=== PATIENT | male | born 1990 | race Caucasian/White ===

== ENCOUNTER 2019-05-01 13:49 | Inpatient (IN) | payer OTHER ==
[2019-05-01 15:34] VITALS: BMI 22.2
--- NOTE | 2019-05-01 16:40 | HP ---
CIWA Score Nausea/Vomitin-No Nausea/No Vomiting Muscle Tremors: None Anxiety: 0-No Anxiety, at Ease Agitation: 2 Paroxysmal Sweats: No Perspiration Orientation: 0-Oriented Tacttile Disturbances: 0-None Auditory Disturbances: 0-None Visual Disturbances: 0-None Headache: 0-None Present CIWA-Ar Total Score: 2 - Admission Criteria OASAS Guidelines: Admission for Medically Managed Detox: Requires at least one of the followin. CIWA greater than 12 2. Seizures within the past 24 hours 3. Delirium tremens within the past 24 hours 4. Hallucinations within the past 24 hours 5. Acute intervention needed for co occurring medical disorder 6. Acute intervention needed for co occurring psychiatric disorder 7. Severe withdrawal that cannot be handled at a lower level of care (continued vomiting, continued diarrhea, abnormal vital signs) requiring intravenous medication and/or fluids 8. Admission ROS [facility] Allergies/Adverse Reactions: Allergies Allergy/AdvReac Type Severity Reaction Status Date / Time No Known Allergies Allergy Verified 05/01/19 15:21 History of Present Illness: 29 y.o. male requesting detox from benzo use , claims using 12 mg xanax x 3 years , daily ,latest use yesterday . Denies seizures . in [facility] 60 mg " a few months " states he is being tapered off methadone . previously in [facility] , left after 4 mo , latest heroin use yesterday 1 bag via [facility] , heroin use since 8 years ago , denies OD . Methadone unverified upon questioning , admits to having been to another facility today , states does not recall name of facility and does not have d/c paperwork " i had restriction , some stupid $!1 " denies other illicits or etoh tobacco : denies PMHX : denies PSHx : denies Psych : denies This report was requested by: Milena Rosa | Reference #: [id number] Others' Prescriptions Patient Name: Manny Ponce Date: 1990 Address: [address] [place] [address] Sex: Male Rx Written Rx Dispensed Drug Quantity Days Supply Prescriber Name 11/17/2018 11/17/2018 buprenorphine-naloxone 8-2 mg sl film 45 15 Xander Trevino) 10/20/2018 10/20/2018 buprenorphine-naloxone 8-2 mg sl film 90 30 Shalom Wick 09/22/2018 09/22/2018 buprenorphine-[facility]one 8[facility]2 [facility] 08/24/2018 08/24/2018 buprenorphine-naloxone 8-2 mg sl film 90 30 Shamika, [facility] 08/10/2018 08/10/2018 buprenorphine-naloxone 8-2 mg sl film 45 [facility] 07/12/2018 07/12/2018 buprenorphine-naloxone 8-2 mg sl film 90 30 Shamika, [facility] 06/03/2018 06/03/2018 suboxone 8 mg-2 mg sl film 90 30 Abimael Pardo 05/06/2018 05/06/2018 suboxone 8 mg-2 mg sl film 90 30 Xander Trevino () Patient Name: Manny Ponce Date: 1990 Address: [address] [place] [address] Sex: Male Rx Written Rx Dispensed Drug Quantity Days Supply Prescriber Name 07/12/2018 07/12/2018 suboxone 8 mg-2 mg sl film 21 7 Cristino Worrell MD Exam Limitations: Clinical Condition - Review of Systems Constitutional: No Symptoms Reported EENT: reports: No Symptoms Reported Respiratory: reports: No Symptoms reported Cardiac: reports: No Symptoms Reported GI: reports: No Symptoms Reported : reports: No Symptoms Reported Musculoskeletal: reports: No Symptoms Reported Integumentary: reports: No Symptoms Reported Neuro: reports: No Symptoms reported Endocrine: reports: No Symptoms Reported Hematology: reports: No Symptoms Reported Psychiatric: reports: Orientated x3, Depressed Patient History - Smoking Cessation Smoking history: Never smoked - Substances abused Alprazolam (Xanax) Other (specify): 2mg Amount used: 8-12 sticks Age of first use: 17 Date of last use: 04/30/19 Heroin Substance route: Inhalation Frequency: Daily Amount used: 5-10bags Age of first use: 22 Date of last use: 04/30/19 Admission Physical Exam S - Vital Signs Vital Signs: Vital Signs - 24 hr 05/01/19 15:17 Temperature 98.6 F Pulse Rate 68 Respiratory 18 Rate Blood Pressure 108/64 - Physical General Appearance: Yes: Mild Distress, Irritable HEENTM: Yes: EOMI Respiratory: Yes: Lungs Clear, Normal Breath Sounds, No Respiratory Distress Neck: Yes: No masses,lesions,Nodules, Trachea in good position Cardiology: Yes: Regular Rhythm, Regular Rate, S1, S2 Abdominal: Yes: Non Tender, Soft Musculoskeletal: Yes: Gait Steady Extremities: Yes: Normal Range of Motion, Non-Tender Neurological: Yes: Alert, Depressed Affect Integumentary: Yes: Warm - Diagnostic (1) Opioid dependence on agonist therapy Current Visit: Yes Status: Chronic (2) Sedative abuse Current Visit: Yes Status: Acute Breathalyzer - Breathalyzer Breathalyzer: 0 Urine Drug Screen - Test Device Lot number: [id number] Expiration date: 02/21/21 - Control Is test valid?: Yes - Results Drug screen NEGATIVE: No Urine drug screen results: FEN-Fentanyl, MOP-Opiates, MTD-Methadone, BZO- Benzodiazepines Inpatient Rehab Admission - Rehab Decision to Admit Inpatient rehab admission?: No
[2019-05-01] MEDS ORDERED: MAG HYDROX/AL HYDROX/SIMETH 30 ML UNIT-DOSE CUP PO PRN (16:55)
[2019-05-01] MEDS ORDERED: IBUPROFEN 400 MG TABLET (FP) PO PRN (16:55)
[2019-05-01] MEDS ORDERED: MENTHOL/PHENOL 1 EACH UD MM PRN (16:55)
[2019-05-01] MEDS ORDERED: MELATONIN 5 MG TABLETS PO PRN (16:55)
[2019-05-01] MEDS ORDERED: BISMUTH SUBSALICYLATE 524 MG/30 ML UD PO PRN (16:55)
[2019-05-01] MEDS ORDERED: MAGNESIUM CITRATE 300 ML BOTTLE PO PRN (16:55)
[2019-05-01] MEDS ORDERED: hydrOXYzine PAMOATE 25 MG CAPSULE (FP) PO PRN (16:55)
[2019-05-01] MEDS ORDERED: ACETAMINOPHEN 325 MG TABLET (FP) PO PRN ×2 (16:55)
[2019-05-01] MEDS ORDERED: MAGNESIUM HYDROX 2400MG/30ML ORAL SUSPENSION 30 ML CUP PO PRN (16:55)
[2019-05-01] MEDS: diazePAM 5 MG TABLET PO PRN (18:09)
[2019-05-01] MEDS: diazePAM 5 MG TABLET PO SCH ×2 (18:22→22:43)
[2019-05-01] MEDS: THIAMINE HCL 100 MG TABLET (FP) PO SCH (22:43)
[2019-05-02] MEDS: diazePAM 5 MG TABLET PO SCH ×3 (06:56→22:09)
[2019-05-02] MEDS ORDERED: METHADONE HCL 10 MG TABLET PO ONE (09:46)
--- NOTE | 2019-05-02 09:54 | PN ---
S CIWA - CIWA Score Nausea/Vomitin-No Nausea/No Vomiting Muscle Tremors: 3 Anxiety: 4-Mod. Anxious/Guarded Agitation: 3 Paroxysmal Sweats: 1-Minimal Palms Moist Orientation: 0-Oriented Tacttile Disturbances: 0-None Auditory Disturbances: 0-None Visual Disturbances: 1-Very Mild Sensitivity Headache: 0-None Present CIWA-Ar Total Score: 12 [facility] Progress Note (SOAP) Subjective: 29 years old male admittedf on for benzo withdrawal sx management treating with valium detox regiment reports in methadone marcos off and received methadone 50mg due to opiate substances in [facility] methadone maintaining at 50mg during the detox Objective: 05/02/19 09:53 Vital Signs Temperature 97.7 F 05/02/19 09:02 Pulse Rate 67 05/02/19 09:02 Respiratory Rate 18 05/02/19 09:02 Blood Pressure 99/64 05/02/19 09:02 O2 Sat by Pulse Oximetry (%) 05/02/19 09:54 lab pending Assessment: 05/02/19 09:54 benzo withdrawal Plan: valium regiment
[2019-05-02] MEDS ORDERED: METHADONE 40 MG, METHADONE 10 MG PO ONE (10:00)
[2019-05-02] MEDS ORDERED: METHADONE HCL 10 MG TABLET ONE (10:08)
[2019-05-02] MEDS ORDERED: METHADONE HCL 40 MG DISPERSABLE TABLET ONE (10:09)
[2019-05-02 10:10] LABS: HEMATOCRIT 38.2 % (35.4-49); HEMOGLOBIN 12.8 GM/dL (11.7-16.9); MCH 28.1 pg (25.7-33.7); MCHC 33.4 g/dl (32.0-35.9); MEAN CELL VOLUME 84.3 fl (80-96); PLATELET COUNT 352 K/MM3 (134-434); RBC 4.53 M/mm3 (4.00-5.60); RDW 13.5 % (11.9-15.9); WHITE BLOOD COUNT 6.3 K/mm3 (4.0-10.0)
[2019-05-02] MEDS: PRENATAL VITAMINS W/ FOLIC ACID TABLET (FP) PO SCH (10:17)
[2019-05-02 10:23] LABS: ALBUMIN 3.9 g/dl (3.4-5.0); BILIRUBIN,TOTAL 0.6 mg/dL (0.2-1); BLOOD UREA NITROGEN 9.2 mg/dL (7-18); CALCIUM 9.1 mg/dL (8.5-10.1); CREATININE 0.8 mg/dL (0.55-1.3); POTASSIUM 4.2 mmol/L (3.5-5.1); TOT PROT 6.7 g/dl (6.4-8.2)
[2019-05-02] MEDS: diazePAM 5 MG TABLET PO PRN (17:58)
[2019-05-02] MEDS: THIAMINE HCL 100 MG TABLET (FP) PO SCH (22:09)
[2019-05-03] MEDS ORDERED: METHADONE HCL 40 MG DISPERSABLE TABLET ONE (04:03)
[2019-05-03] MEDS ORDERED: METHADONE HCL 10 MG TABLET ONE (04:03)
[2019-05-03] MEDS ORDERED: METHADONE HCL 10 MG TABLET PO SCH (06:00)
[2019-05-03] MEDS ORDERED: METHADONE 40 MG, METHADONE 10 MG PO SCH (06:00)
[2019-05-03] MEDS ORDERED: diazePAM 5 MG TABLET PO SCH (06:00)
[2019-05-03 09:12] VITALS: BP 98/66; PULSE 80; TEMP 97.3
[2019-05-03] MEDS: PRENATAL VITAMINS W/ FOLIC ACID TABLET (FP) PO SCH (10:01)
[2019-05-03] MEDS: diazePAM 5 MG TABLET PO PRN (10:01)
--- NOTE | 2019-05-03 10:48 | DS ---
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 patient walked in to counselor's room took the phone and begin conduct business patient was informed unit rule that group time and medication time are not allow to use the phone patient was irritable aggressive and intimidating gesture and made fingers cracking noise team met with the patient that short frequent groups and medication time are for the safety of the patients to avoid phone preoccupation patient seems receptive time elapse patient insists to have his cell phone or he will leave the detox 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 patient prefers to leave the detox Pertinent Past History: patient insists to leave the detox unit that phone is not available 20/10 which influence his operation case discussed with the nurse against medical advice is appropriated patient reports that he does not want to marcos off his methadone "do not know why" the methadone program performing marcos - Physical Exam Results Vital Signs: Vital Signs Temperature 97.3 F L 05/03/19 08:38 Pulse Rate 80 05/03/19 08:38 Respiratory Rate 18 05/03/19 08:38 Blood Pressure 98/66 05/03/19 08:38 O2 Sat by Pulse Oximetry (%) Pertinent Admission Physical Exam Findings: benzo withdrawal Laboratory Last Values WBC 6.3 K/mm3 (4.0-10.0) 05/02/19 07:30 RBC 4.53 M/mm3 (4.00-5.60) 05/02/19 07:30 Hgb 12.8 GM/dL (11.7-16.9) 05/02/19 07:30 Hct 38.2 % (35.4-49) 05/02/19 07:30 MCV 84.3 fl (80-96) 05/02/19 07:30 MCH 28.1 pg (25.7-33.7) 05/02/19 07:30 MCHC 33.4 g/dl (32.0-35.9) 05/02/19 07:30 RDW 13.5 % (11.9-15.9) 05/02/19 07:30 Plt Count 352 K/MM3 (134-434) 05/02/19 07:30 MPV 9.0 fl (7.5-11.1) 05/02/19 07:30 Sodium 141 mmol/L (136-145) 05/02/19 07:30 Potassium 4.2 mmol/L (3.5-5.1) 05/02/19 07:30 Chloride 108 mmol/L (98-107) H 05/02/19 07:30 Carbon Dioxide 26 mmol/L (21-32) 05/02/19 07:30 Anion Gap 6 MMOL/L (8-16) L 05/02/19 07:30 BUN 9.2 mg/dL (7-18) 05/02/19 07:30 Creatinine 0.8 mg/dL (0.55-1.3) 05/02/19 07:30 Est GFR (CKD-EPI)AfAm 139.91 05/02/19 07:30 Est GFR (CKD-EPI)NonAf 120.72 05/02/19 07:30 Random Glucose 83 mg/dL (74-106) 05/02/19 07:30 Calcium 9.1 mg/dL (8.5-10.1) 05/02/19 07:30 Total Bilirubin 0.6 mg/dL (0.2-1) 05/02/19 07:30 AST 23 U/L (15-37) 05/02/19 07:30 ALT 28 U/L (13-61) 05/02/19 07:30 Alkaline Phosphatase 43 U/L (45-117) L 05/02/19 07:30 Total Protein 6.7 g/dl (6.4-8.2) 05/02/19 07:30 Albumin 3.9 g/dl (3.4-5.0) 05/02/19 07:30 RPR Titer Nonreactive (NONREACTIVE) 05/02/19 07:30 lab noted - Treatment Hospital Course: Detox Protocol Followed Patient has Accepted a Rehab Referral to: [facility] chemical dependent rehab - Medication Discharge Medications: Ambulatory Orders Methadone [Dolophine -] 50 mg PO DAILY 05/01/19 - Diagnosis (1) Sedative, hypnotic or anxiolytic dependence, uncomplicated Status: Acute (2) Opioid dependence on agonist therapy Status: Chronic - AMA Did Patient Leave Against Medical Advice: Yes
[2019-05-04] MEDS ORDERED: diazePAM 5 MG TABLET PO ONE (06:00)
== END 2019-05-03 11:05 | disposition left against medical advice (07) | DRG 770 ==
LOC: YASAS 13:49 → Y3N 17:03
PROVIDERS: ADMIT Allergy & Immunology; ATTEND Allergy & Immunology
PROC: HZ2ZZZZ Detoxification Services for Substance Abuse Treatment (ICD-10-PCS; principal; 2019-05-01)
DX: F13.230 Sedative, hypnotic or anxiolytic dependence with withdrawal, uncomplicated (principal); F11.20 Opioid dependence, uncomplicated; Z59.0 Homelessness
CPT/HCPCS: 36415; 80053; 85027; 86593

== ENCOUNTER 2019-11-15 20:03 | Inpatient (IN) | payer OTHER ==
[2019-11-15 20:56] VITALS: BMI 21.9
--- NOTE | 2019-11-15 21:29 | HP ---
COWS - Scale Resting Pulse: 1= [place] 81-100 Sweatin=Flushed/Facial Moisture Restless Observation: 1= Difficult to Sit Still Pupil Size: 0= Normal to Room Light Bone or Joint Aches: 2= Severe Diffuse Aches Runny Nose/ Eye Tearin= Runny Nose/Eyes GI Upset > 30mins: 3= Vomiting/Diarrhea (vopmiting x 2, diarrhea x 2) Tremor Observation: 4= Gross Tremor/Twitching Yawning Observation: 1= 1-2x During Session Anxiety or Irritability: 4=Extreme Anxiety Goose Flesh Skin: 0=Smooth Skin COWS Score: 20 CIWA Score Nausea/Vomitin (vomiting x 2) Muscle Tremors: 4-Moderate,w/Arms Extend Anxiety: 4-Mod. Anxious/Guarded Agitation: 4-Moderately Restless Paroxysmal Sweats: 2 Orientation: 1-Uncertain about Date Tacttile Disturbances: 1-Very Mild Itch/Numbness Auditory Disturbances: 0-None Visual Disturbances: 0-None Headache: 0-None Present CIWA-Ar Total Score: 19 - Admission Criteria OASAS Guidelines: Admission for Medically Managed Detox: Requires at least one of the followin. CIWA greater than 12 2. Seizures within the past 24 hours 3. Delirium tremens within the past 24 hours 4. Hallucinations within the past 24 hours 5. Acute intervention needed for co occurring medical disorder 6. Acute intervention needed for co occurring psychiatric disorder 7. Severe withdrawal that cannot be handled at a lower level of care (continued vomiting, continued diarrhea, abnormal vital signs) requiring intravenous medication and/or fluids 8. Admitting History and Physical - Smoking History Smoking history: Never smoked Have you smoked in the past 12 months: No Admission [facility] Chief Complaint: Xanax and heroin withdrawal symptoms Allergies/Adverse Reactions: Allergies Allergy/AdvReac Type Severity Reaction Status Date / Time No Known Allergies Allergy Verified 05/01/19 15:21 History of Present Illness: 29 years old male with 8 years of heroin dependence and 13 years of benzodiazepine dependence is seeking admission to detox. Patient left against medical advice the first time he came here and was aggressive and disrespectful as per documentation. Patient promised that he will complete this detox and will sign a treatment contract. He reports that he takes Xanax 8mg tablet and 10 bags of heroin daily. He denies medical history, reports psych. history of anxiety and denies suicidal ideation at this time. He is unemployed, lives with his father and denies legal issues. He reports blackouts and overdose last Thursday. Patient reports that the bruises on his bilateral leg are scratch sales from [place] the park. Exam Limitations: No Limitations - Ebola screening Have you traveled outside of the country in the last 21 days: No Have you had contact with anyone from an Ebola affected area: No Have you been sick,other than usual withdrawal symptoms: No Do you have a fever: No - Review of Systems Constitutional: Chills, Malaise, Night Sweats, Changes in sleep EENT: reports: No Symptoms Reported Respiratory: reports: No Symptoms reported Cardiac: reports: No Symptoms Reported GI: reports: Diarrhea, Nausea, Poor Fluid Intake, Vomiting, Abdominal cramping : reports: No Symptoms Reported Musculoskeletal: reports: Back Pain, Muscle Pain Integumentary: reports: Dryness, Flushing Neuro: reports: Tremors Endocrine: reports: No Symptoms Reported Hematology: reports: No Symptoms Reported Psychiatric: reports: Mood/Affect Appropiate, Anxious Other Systems: Reviewed and Negative Patient History - Patient Medical History Hx Anemia: No Hx Asthma: No Hx Chronic Obstructive Pulmonary Disease (COPD): No Hx Cancer: No Hx Cardiac Disorders: No Hx Congestive Heart Failure: No Hx Hypertension: No Hx Hypercholesterolemia: No Hx Pacemaker: No HX Cerebrovascular Accident: No Hx Seizures: No Hx Dementia: No Hx Diabetes: No Hx Gastrointestinal Disorders: No Hx Genitourinary Disorders: No Hx Sexually Transmitted Disorders: No Hx Renal Disease (ESRD): No Hx Thyroid Disease: No Hx Human Immunodeficiency Virus (HIV): No (Negative 2020) Hx Hepatitis C: No Hx Depression: Yes Hx Suicide Attempt: No (Denies suicidal ideation at this time) Hx Bipolar Disorder: No Hx Schizophrenia: No - Patient Surgical History Past Surgical History: No Hx Neurologic Surgery: No Hx Cataract Extraction: No Hx Cardiac Surgery: No Hx Lung Surgery: No Hx Abdominal Surgery: No Hx Appendectomy: No Hx Cholecystectomy: No Hx Genitourinary Surgery: No Hx Orthopedic Surgery: No Anesthesia Reaction: No - PPD History Previous Implant?: Yes Date: 05/03/19 PPD to be Administered?: Yes - Reproductive History Patient is a Female of Child Bearing Age (11 -55 yrs old): No (Male) - Smoking Cessation Smoking history: Never smoked Have you smoked in the past 12 months: No Hx Chewing Tobacco Use: No Initiated information on smoking cessation: No - Substance & Tx. History Hx Substance Use: Yes Substance Use Type: Cocaine, Heroin, Marijuana, Opiates, Tranquilizers Hx Substance Use Treatment: Yes ([facility]) - Substances abused Heroin Substance route: Inhalation Frequency: Daily Amount used: 10 bags Age of first use: 21 Date of last use: 11/15/19 Alprazolam (Xanax) Substance route: Oral Frequency: Daily Amount used: 8mg Age of first use: 16 Date of last use: 11/14/19 Admission Physical Exam [facility] - Vital Signs Vital Signs: Vital Signs - 24 hr 11/15/19 20:54 Temperature 98.4 F Pulse Rate 82 Respiratory 18 Rate Blood Pressure 112/65 - Physical General Appearance: Yes: Moderate Distress, Tremorous, Irritable, Anxious HEENTM: Yes: Within Normal Limits Respiratory: Yes: Lungs Clear, Normal Breath Sounds, No Respiratory Distress Neck: Yes: Within Normal Limits Breast: Yes: Breast Exam Deferred Cardiology: Yes: Regular Rhythm, Regular Rate Abdominal: Yes: Normal Bowel Sounds Genitourinary: Yes: Within Normal Limits Back: Yes: Normal Inspection Musculoskeletal: Yes: Back pain, Muscle Pain Extremities: Yes: Tremors Neurological: Yes: Within Normal Limits Integumentary: Yes: Warm Lymphatic: Yes: Within Normal Limits - Diagnostic (1) Opioid dependence with withdrawal Current Visit: Yes Status: Acute (2) Depression Current Visit: Yes Status: Chronic Qualifiers: Depression Type: unspecified Qualified Code(s): F32.9 - Major depressive disorder, single episode, unspecified (3) Sedative, hypnotic or anxiolytic dependence, uncomplicated Current Visit: Yes Status: Acute Cleared for Admission [facility] - Detox or Rehab [facility] Level of Care: Medically Managed Detox Regimen/Protocol: Methadone/Valium Claeared for Rehab Admission: No Breathalyzer - Breathalyzer Breathalyzer: 0 Urine Drug Screen - Test Device Lot number: [id number] Expiration date: 07/05/21 - Control Is test valid?: Yes - Results Drug screen NEGATIVE: No Urine drug screen results: THC-Marijuana, BERNARD-Cocaine, FEN-Fentanyl, MOP- Opiates, BZO-Benzodiazepines Inpatient Rehab Admission - Rehab Decision to Admit Inpatient rehab admission?: No
[2019-11-15] MEDS ORDERED: ACETAMINOPHEN 325 MG TABLET (FP) PO PRN ×2 (21:45)
[2019-11-15] MEDS ORDERED: cloNIDine HCL 0.1 MG TABLET PO PRN (21:45)
[2019-11-15] MEDS ORDERED: METHADONE HCL 10 MG TABLET (FOR DETOX USE ONLY) PO ONE (21:45)
[2019-11-15] MEDS ORDERED: BISMUTH SUBSALICYLATE 524 MG/30 ML UD PO PRN (21:45)
[2019-11-15] MEDS ORDERED: ONDANSETRON *ODT* 4 MG TABLET SL ONE (21:45)
[2019-11-15] MEDS ORDERED: MAGNESIUM CITRATE 300 ML BOTTLE PO PRN (21:45)
[2019-11-15] MEDS ORDERED: MAGNESIUM HYDROX 2400MG/30ML ORAL SUSPENSION 30 ML CUP PO PRN (21:45)
[2019-11-15] MEDS ORDERED: MAG HYDROX/AL HYDROX/SIMETH 30 ML UNIT-DOSE CUP PO PRN (21:45)
[2019-11-15] MEDS ORDERED: METHOCARBAMOL 500 MG TABLET PO PRN (21:45)
[2019-11-15] MEDS ORDERED: MENTHOL/PHENOL 1 EACH UD MM PRN (21:45)
[2019-11-15] MEDS ORDERED: IBUPROFEN 400 MG TABLET (FP) PO PRN (21:45)
[2019-11-15] MEDS: diazePAM 5 MG TABLET PO SCH (23:41)
[2019-11-15] MEDS: MELATONIN 5 MG TABLETS PO SCH (23:42)
[2019-11-15] MEDS: THIAMINE HCL 100 MG TABLET (FP) PO SCH (23:42)
[2019-11-16] MEDS: diazePAM 5 MG TABLET PO SCH ×3 (06:48→22:47)
[2019-11-16] MEDS ORDERED: METHADONE HCL 5 MG TABLET (FOR DETOX USE ONLY) ONE (09:13)
[2019-11-16] MEDS ORDERED: METHADONE HCL 10 MG TABLET (FOR DETOX USE ONLY) ONE (09:13)
--- NOTE | 2019-11-16 09:22 | EKG ---
Test Reason : Blood Pressure : / mmHG Vent. Rate : 070 BPM Atrial Rate : 070 BPM P-R Int : 198 ms QRS Dur : 090 ms QT Int : 398 ms P-R-T Axes : 063 014 024 degrees QTc Int : 429 ms NORMAL SINUS RHYTHM NORMAL ECG NO PREVIOUS ECGS AVAILABLE Confirmed by Manav Denis MD ([id number]) on 11/16/2019 9:22:29 AM Referred By: ERICK BRYAN Confirmed By:Manav Denis MD
[2019-11-16] MEDS ORDERED: METHADONE (DETOX) 20 MG, METHADONE (DETOX) 5 MG PO ONE (10:00)
[2019-11-16] MEDS: PRENATAL VITAMINS W/ FOLIC ACID TABLET (FP) PO SCH (10:02)
[2019-11-16] MEDS: diazePAM 5 MG TABLET PO PRN (10:02)
[2019-11-16 12:19] LABS: HEMATOCRIT 34.8 % (35.4-49); HEMOGLOBIN 11.3 GM/dL (11.7-16.9); MCH 27.2 pg (25.7-33.7); MCHC 32.4 g/dl (32.0-35.9); MEAN CELL VOLUME 83.8 fl (80-96); MEAN PLT VOLUME 8.2 fl (7.5-11.1); PLATELET COUNT 374 K/MM3 (134-434); RBC 4.16 M/mm3 (4.00-5.60); RDW 13.4 % (11.9-15.9); WHITE BLOOD COUNT 6.5 K/mm3 (4.0-10.0)
[2019-11-16 12:31] LABS: ALBUMIN 3.2 g/dl (3.4-5.0); BLOOD UREA NITROGEN 10.6 mg/dL (7-18); CALCIUM 8.8 mg/dL (8.5-10.1); POTASSIUM 4.1 mmol/L (3.5-5.1)
[2019-11-16 12:36] LABS: BILIRUBIN,TOTAL 0.2 mg/dL (0.2-1); CREATININE 0.7 mg/dL (0.55-1.3); TOT PROT 6.2 g/dl (6.4-8.2)
--- NOTE | 2019-11-16 14:21 | PN ---
S CIWA - CIWA Score Nausea/Vomitin-Mild Nausea/No Vomiting Muscle Tremors: 4-Moderate,w/Arms Extend Anxiety: 3 Agitation: 1-Slight > Activity Paroxysmal Sweats: 1-Minimal Palms Moist Orientation: 0-Oriented Tacttile Disturbances: 0-None Auditory Disturbances: 0-None Visual Disturbances: 2-Mild Sensitivity Headache: 2-Mild CIWA-Ar Total Score: 14 S COWS - Scale Resting Pulse: 0= [place] 80 or Below Sweatin= Chills/Flushing Restless Observation: 0= Sits Still Pupil Size: 1= Pupils >than Normal Bone or Joint Aches: 2= Severe Diffuse Aches Runny Nose/ Eye Tearin= None GI Upset > 30mins: 2= Nausea/Diarrhea Tremor Observation of Outstretched Hands: 2= Slight Tremor Visible Yawning Observation: 1= 1-2x During Session Anxiety or Irritability: 2=Irritable/Anxious Goose Flesh Skin: 3=Piloerection COWS Score: 14 S Progress Note (SOAP) Subjective: 29 years old male was admitted on 11/15/19 for benzo and opiate withdrawal sx management treating with valium and methadone detox regiments ate breakfast and lunch in room feels tired prefers to stay in bed limited conversation with staff Objective: 11/16/19 14:21 Vital Signs - 24 hr 11/15/19 11/15/19 11/15/19 20:54 22:46 22:55 Temperature 98.4 F 98.4 F Pulse Rate 82 82 Respiratory 18 18 Rate Blood Pressure 112/65 112/65 O2 Sat by Pulse 100 Oximetry (%) 11/15/19 11/16/19 11/16/19 23:29 09:03 12:55 Temperature 97.1 F L 99.0 F 99.3 F Pulse Rate 65 77 73 Respiratory 18 18 18 Rate Blood Pressure 107/75 104/69 102/64 O2 Sat by Pulse 100 99 Oximetry (%) Laboratory Tests 11/16/19 11/16/19 08:30 08:30 WBC 6.5 RBC 4.16 Hgb 11.3 L Hct 34.8 L MCV 83.8 MCH 27.2 MCHC 32.4 RDW 13.4 Plt Count 374 MPV 8.2 Sodium 140 Potassium 4.1 Chloride 107 Carbon Dioxide 29 Anion Gap 5 L BUN 10.6 Creatinine 0.7 Est GFR (CKD-EPI)AfAm 147.81 Est GFR (CKD-EPI)NonAf 127.53 Random Glucose 105 Calcium 8.8 Total Bilirubin 0.2 AST 16 ALT 16 Alkaline Phosphatase 50 Total Protein 6.2 L Albumin 3.2 L 11/16/19 14:21 covid pending Assessment: 11/16/19 14:26 benzo and opiate withdrawal Plan: valium and methadone regiments
[2019-11-16] MEDS: THIAMINE HCL 100 MG TABLET (FP) PO SCH (22:47)
[2019-11-16] MEDS: MELATONIN 5 MG TABLETS PO SCH (22:48)
[2019-11-17] MEDS: diazePAM 5 MG TABLET PO SCH ×2 (06:36→17:30)
[2019-11-17] MEDS: diazePAM 5 MG TABLET PO PRN ×2 (09:56→22:31)
[2019-11-17] MEDS: PRENATAL VITAMINS W/ FOLIC ACID TABLET (FP) PO SCH (09:56)
[2019-11-17] MEDS ORDERED: METHADONE HCL 10 MG TABLET (FOR DETOX USE ONLY) PO ONE (10:00)
--- NOTE | 2019-11-17 13:36 | PN ---
[facility] CIWA - CIWA Score Nausea/Vomitin-Mild Nausea/No Vomiting Muscle Tremors: 2 Anxiety: 2 Agitation: 3 Paroxysmal Sweats: No Perspiration Orientation: 0-Oriented Tacttile Disturbances: 0-None Auditory Disturbances: 0-None Visual Disturbances: 2-Mild Sensitivity Headache: 1-Very Mild CIWA-Ar Total Score: 11 S COWS - Scale Resting Pulse: 0= [place] 80 or Below Sweatin= Chills/Flushing Restless Observation: 0= Sits Still Pupil Size: 1= Pupils >than Normal Bone or Joint Aches: 1= Mild Discomfort Runny Nose/ Eye Tearin= Nasal Congestion GI Upset > 30mins: 2= Nausea/Diarrhea Tremor Observation of Outstretched Hands: 2= Slight Tremor Visible Yawning Observation: 1= 1-2x During Session Anxiety or Irritability: 2=Irritable/Anxious Goose Flesh Skin: 0=Smooth Skin COWS Score: 11 [facility] Progress Note (SOAP) Subjective: 29 years old male was admitted on 11/15/19 for benzo and opiate withdrawal sx management treating with valium and methadone detox regiments ate breakfast and lunch in room resting in bed encourage mr bowie to discuss aftercare with staff limited conversation with staff Objective: 11/17/19 13:42 Vital Signs - 24 hr 11/16/19 11/16/19 11/17/19 16:34 20:54 06:41 Temperature 97.5 F L 97.3 F L 97.6 F Pulse Rate 65 75 60 Respiratory 17 18 18 Rate Blood Pressure 90/55 L 103/75 99/64 O2 Sat by Pulse 99 Oximetry (%) 11/17/19 08:58 Temperature 98.6 F Pulse Rate 69 Respiratory 18 Rate Blood Pressure 96/64 O2 Sat by Pulse Oximetry (%) Laboratory Tests 11/15/19 11/16/19 11/16/19 22:00 08:30 08:30 WBC 6.5 RBC 4.16 Hgb 11.3 L Hct 34.8 L MCV 83.8 MCH 27.2 MCHC 32.4 RDW 13.4 Plt Count 374 MPV 8.2 Sodium Potassium Chloride Carbon Dioxide Anion Gap BUN Creatinine Est GFR (CKD-EPI)AfAm Est GFR (CKD-EPI)NonAf Random Glucose Calcium Total Bilirubin AST ALT Alkaline Phosphatase Total Protein Albumin Syphilis Serology Non-reactive COVID-19 ([place]) Not detected 11/16/19 08:30 WBC RBC Hgb Hct MCV MCH MCHC RDW Plt Count MPV Sodium 140 Potassium 4.1 Chloride 107 Carbon Dioxide 29 Anion Gap 5 L BUN 10.6 Creatinine 0.7 Est GFR (CKD-EPI)AfAm 147.81 Est GFR (CKD-EPI)NonAf 127.53 Random Glucose 105 Calcium 8.8 Total Bilirubin 0.2 AST 16 ALT 16 Alkaline Phosphatase 50 Total Protein 6.2 L Albumin 3.2 L Syphilis Serology COVID-19 ([place]) lab noted Assessment: 11/17/19 13:43 benzo and opiate withdrawal Plan: valium and methadone regiments
[2019-11-17] MEDS: MELATONIN 5 MG TABLETS PO SCH (22:29)
[2019-11-17] MEDS: THIAMINE HCL 100 MG TABLET (FP) PO SCH (22:29)
[2019-11-18] MEDS ORDERED: diazePAM 5 MG TABLET PO ONE (06:00)
[2019-11-18] MEDS ORDERED: METHADONE (DETOX) 10 MG, METHADONE (DETOX) 5 MG PO ONE (10:00)
[2019-11-18] MEDS ORDERED: METHADONE HCL 10 MG TABLET (FOR DETOX USE ONLY) ONE (10:05)
[2019-11-18] MEDS ORDERED: METHADONE HCL 5 MG TABLET (FOR DETOX USE ONLY) ONE (10:05)
[2019-11-18] MEDS: diazePAM 5 MG TABLET PO PRN ×2 (10:07→17:55)
[2019-11-18] MEDS: PRENATAL VITAMINS W/ FOLIC ACID TABLET (FP) PO SCH (10:08)
--- NOTE | 2019-11-18 11:20 | PN ---
[facility] CIWA - CIWA Score Nausea/Vomitin-No Nausea/No Vomiting Muscle Tremors: None Anxiety: 3 Agitation: 2 Paroxysmal Sweats: 3 Orientation: 0-Oriented Tacttile Disturbances: 0-None Auditory Disturbances: 0-None Visual Disturbances: 0-None Headache: 0-None Present CIWA-Ar Total Score: 8 S Progress Note (SOAP) Subjective: c/o anxiety, irritability, and sweats. Objective: 11/18/19 11:20 Vital Signs 11/18/19 11/18/19 06:55 08:35 Temperature 97.3 F L 98.6 F Pulse Rate 57 L 59 L Respiratory 16 16 Rate Blood Pressure 100/58 L 87/55 L O2 Sat by Pulse 99 Oximetry (%) Laboratory Last Values WBC 6.5 K/mm3 (4.0-10.0) 11/16/19 08:30 RBC 4.16 M/mm3 (4.00-5.60) 11/16/19 08:30 Hgb 11.3 GM/dL (11.7-16.9) L 11/16/19 08:30 Hct 34.8 % (35.4-49) L 11/16/19 08:30 MCV 83.8 fl (80-96) 11/16/19 08:30 MCH 27.2 pg (25.7-33.7) 11/16/19 08:30 MCHC 32.4 g/dl (32.0-35.9) 11/16/19 08:30 RDW 13.4 % (11.9-15.9) 11/16/19 08:30 Plt Count 374 K/MM3 (134-434) 11/16/19 08:30 MPV 8.2 fl (7.5-11.1) 11/16/19 08:30 Sodium 140 mmol/L (136-145) 11/16/19 08:30 Potassium 4.1 mmol/L (3.5-5.1) 11/16/19 08:30 Chloride 107 mmol/L (98-107) 11/16/19 08:30 Carbon Dioxide 29 mmol/L (21-32) 11/16/19 08:30 Anion Gap 5 MMOL/L (8-16) L 11/16/19 08:30 BUN 10.6 mg/dL (7-18) 11/16/19 08:30 Creatinine 0.7 mg/dL (0.55-1.3) 11/16/19 08:30 Est GFR (CKD-EPI)AfAm 147.81 11/16/19 08:30 Est GFR (CKD-EPI)NonAf 127.53 11/16/19 08:30 Random Glucose 105 mg/dL (74-106) 11/16/19 08:30 Calcium 8.8 mg/dL (8.5-10.1) 11/16/19 08:30 Total Bilirubin 0.2 mg/dL (0.2-1) 11/16/19 08:30 AST 16 U/L (15-37) 11/16/19 08:30 ALT 16 U/L (13-61) 11/16/19 08:30 Alkaline Phosphatase 50 U/L (45-117) 11/16/19 08:30 Total Protein 6.2 g/dl (6.4-8.2) L 11/16/19 08:30 Albumin 3.2 g/dl (3.4-5.0) L 11/16/19 08:30 Syphilis Serology Non-reactive (NONREACTIVE) 11/16/19 08:30 COVID-19 ([place]) Not detected (Not Detected) 11/15/19 22:00 Labs noted. Assessment: 11/18/19 11:20 AOX3, in no acute respiratory distress. Full ROM, ambulating in the unit. Withdrawal symptoms. Plan: continue detox.
[2019-11-18 21:44] VITALS: BP 112/64; PULSE 72; TEMP 97.3
[2019-11-18] MEDS: MELATONIN 5 MG TABLETS PO SCH (22:22)
[2019-11-18] MEDS: THIAMINE HCL 100 MG TABLET (FP) PO SCH (22:22)
[2019-11-19] MEDS ORDERED: METHADONE HCL 10 MG TABLET (FOR DETOX USE ONLY) PO ONE (10:00)
[2019-11-19] MEDS: PRENATAL VITAMINS W/ FOLIC ACID TABLET (FP) PO SCH (10:09)
--- NOTE | 2019-11-19 12:17 | DS ---
[facility] Detox Discharge Summary Admission Date: 11/15/19 Discharge Date: 11/19/19 - History Present History: Opioid Dependence, Sedative Dependence Additional Comments: Pt is medically cleared and discharged today. Pt completed the detox protocol. Pt is encouraged to follow-up with an outpatient CD program and also to follow- up with his pmd which he verbalized understanding. Pt is AOX3, in no acute respiratory distress, Full ROM, and ambulatory. Pertinent Past History: h/o heroin and benzo use disorder. - Physical Exam Results Vital Signs: Vital Signs Temperature 97.3 F L 11/18/19 20:50 Pulse Rate 72 11/18/19 20:50 Respiratory Rate 16 11/18/19 20:50 Blood Pressure 112/64 11/18/19 20:50 O2 Sat by Pulse Oximetry (%) 100 11/18/19 20:50 Laboratory Last Values WBC 6.5 K/mm3 (4.0-10.0) 11/16/19 08:30 RBC 4.16 M/mm3 (4.00-5.60) 11/16/19 08:30 Hgb 11.3 GM/dL (11.7-16.9) L 11/16/19 08:30 Hct 34.8 % (35.4-49) L 11/16/19 08:30 MCV 83.8 fl (80-96) 11/16/19 08:30 MCH 27.2 pg (25.7-33.7) 11/16/19 08:30 MCHC 32.4 g/dl (32.0-35.9) 11/16/19 08:30 RDW 13.4 % (11.9-15.9) 11/16/19 08:30 Plt Count 374 K/MM3 (134-434) 11/16/19 08:30 MPV 8.2 fl (7.5-11.1) 11/16/19 08:30 Sodium 140 mmol/L (136-145) 11/16/19 08:30 Potassium 4.1 mmol/L (3.5-5.1) 11/16/19 08:30 Chloride 107 mmol/L (98-107) 11/16/19 08:30 Carbon Dioxide 29 mmol/L (21-32) 11/16/19 08:30 Anion Gap 5 MMOL/L (8-16) L 11/16/19 08:30 BUN 10.6 mg/dL (7-18) 11/16/19 08:30 Creatinine 0.7 mg/dL (0.55-1.3) 11/16/19 08:30 Est GFR (CKD-EPI)AfAm 147.81 11/16/19 08:30 Est GFR (CKD-EPI)NonAf 127.53 11/16/19 08:30 Random Glucose 105 mg/dL (74-106) 11/16/19 08:30 Calcium 8.8 mg/dL (8.5-10.1) 11/16/19 08:30 Total Bilirubin 0.2 mg/dL (0.2-1) 11/16/19 08:30 AST 16 U/L (15-37) 11/16/19 08:30 ALT 16 U/L (13-61) 11/16/19 08:30 Alkaline Phosphatase 50 U/L (45-117) 11/16/19 08:30 Total Protein 6.2 g/dl (6.4-8.2) L 11/16/19 08:30 Albumin 3.2 g/dl (3.4-5.0) L 11/16/19 08:30 Syphilis Serology Non-reactive (NONREACTIVE) 11/16/19 08:30 COVID-19 ([place]) Not detected (Not Detected) 11/15/19 22:00 Labs noted. Pertinent Admission Physical Exam Findings: withdrawal symptoms. - Treatment Hospital Course: Detox Protocol Followed, Detoxed Safely, Responded well, Discharged Condition Good - Medication Discharge Medications: Ambulatory Orders NK [No Known Home Medication] 11/15/19 - Diagnosis (1) Opioid use disorder Status: Chronic (2) Opioid dependence with withdrawal Status: Acute (3) Sedative abuse Status: Chronic - AMA Did Patient Leave Against Medical Advice: No S CIWA - CIWA Score Nausea/Vomitin-No Nausea/No Vomiting Muscle Tremors: None Anxiety: 1-Mildly Anxious Agitation: 0-Normal Activity Paroxysmal Sweats: 2 Orientation: 0-Oriented Tacttile Disturbances: 0-None Auditory Disturbances: 0-None Visual Disturbances: 0-None Headache: 0-None Present CIWA-Ar Total Score: 3 BHS COWS - Scale Resting Pulse: 0= [place] 80 or Below Sweatin= No chills or Flushing Restless Observation: 0= Sits Still Pupil Size: 0= Normal to Room Light Bone or Joint Aches: 1= Mild Discomfort Runny Nose/ Eye Tearin= None GI Upset > 30mins: 0= None Tremor Observation of Outstretched Hands: 0= None Yawning Observation: 0= None Anxiety or Irritability: 1=Feels Anxious/Irritable Goose Flesh Skin: 0=Smooth Skin COWS Score: 2
[2019-11-20] MEDS ORDERED: METHADONE HCL 5 MG TABLET (FOR DETOX USE ONLY) PO ONE (06:00)
== END 2019-11-19 11:17 | disposition home or self-care (01) | DRG 773 ==
LOC: YASAS 20:03 → Y3N 21:42
PROVIDERS: ADMIT Allergy & Immunology; ATTEND Allergy & Immunology
PROC: HZ2ZZZZ Detoxification Services for Substance Abuse Treatment (ICD-10-PCS; principal; 2019-11-15)
DX: F11.23 Opioid dependence with withdrawal (principal); F13.230 Sedative, hypnotic or anxiolytic dependence with withdrawal, uncomplicated; F32.9 Major depressive disorder, single episode, unspecified
CPT/HCPCS: 36415; 80053; 85027; 86780; 93005; 93010; U0003